=== PATIENT | male | born 1970 | race Caucasian/White ===

== ENCOUNTER 2021-10-09 07:49 | Outpatient (CLI) | payer OTHER | END 2021-10-09 07:50 | disposition left against medical advice (07) | LOC: EMS 07:49 | DX: M25.531 Pain in right wrist (principal); V43.52XA Car driver injured in collision with other type car in traffic accident, initial encounter; Y92.413 State road as the place of occurrence of the external cause ==

== ENCOUNTER 2021-10-09 09:10 | Emergency (ER) | payer OTHER ==
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
[2021-10-09 10:24] VITALS: BP 156/96
== END 2021-10-09 10:25 | disposition home or self-care (01) ==
LOC: ED 09:10
DX: S62.101A Fracture of unspecified carpal bone, right wrist, initial encounter for closed fracture (principal); V43.02XA Car driver injured in collision with other type car in nontraffic accident, initial encounter
CPT/HCPCS: 99283

== ENCOUNTER 2021-10-14 09:15 | Outpatient (CLI) | payer OTHER ==
--- NOTE | 2021-10-14 10:46 | XRAY Report ---
PROCEDURE: Wrist 3 View RT INDICATIONS: Wrist fracture TECHNIQUE: 3 views of the wrist were acquired. COMPARISON: 10/09/2021 FINDINGS: Fractures of the left distal radius and the left ulnar styloid are redemonstrated without significant change in appearance or alignment. Circumferential swelling about the wrist has decreased slightly. IMPRESSION: Mild decrease in circumferential soft tissue swelling about the wrist. Otherwise no sign ificant change. Reviewed by: Toño Phan MD on 10/14/2021 10:45 AM PDT Approved by: Toño Phan MD on 10/14/2021 10:45 AM PDT Station ID: [id number]
== END 2021-10-14 23:59 | disposition home or self-care (01) ==
LOC: DI.WOS 09:15
PROVIDERS: ATTEND Orthopaedic Surgery
DX: M25.531 Pain in right wrist (principal); R60.0 Localized edema

== ENCOUNTER 2021-10-18 11:18 | Day surgery (SDC) | payer OTHER ==
[2021-10-18] MEDS ORDERED: CEFAZOLIN SODIUM IN 0.9 % NACL 2 GM/50 ML BAG IV ONE (11:33)
[2021-10-18] MEDS ORDERED: CELECOXIB 100 MG CAPSULE PO ONE (11:34)
[2021-10-18] MEDS ORDERED: ACETAMINOPHEN 500 MG TABLET PO ONE (11:48)
[2021-10-18] MEDS ORDERED: LACTATED RINGERS 1,000 ML IV ONE ×2 (12:05→13:20)
[2021-10-18] MEDS ORDERED: BUPIVACAINE 0.25% PF 10 ML VIAL ONE (12:08)
--- NOTE | 2021-10-18 12:29 | ANESTHESIA ---
Pre-Anesthesia VS, & Labs - Diagnosis right distal radial fracture - Procedure ORIF right distal radial fracture Vital Signs: Temp Pulse Resp BP Pulse Ox 37.1 C 71 16 133/83 H 100 10/18/21 11:41 10/18/21 11:41 10/18/21 11:41 10/18/21 11:41 10/18/21 11:41 Height: 5 ft 7 in Weight (kg): 89.5 kg Body Mass Index: 30.9 BMI Classification: Obese - NPO >8 hours - Lab Results Current Lab Results: Laboratory Tests 10/18/21 12:05: POC Whole Bld Glucose 84 Home Medications and Allergies zyrtec OTC, tylenol and advil Allergies/Adverse Reactions: Allergies Allergy/AdvReac Type Severity Reaction Status Date / Time No Known Drug Allergies Allergy Verified 10/09/21 09:19 Anes History & Medical History - Anesthetic History Anesthesia Complications: reports: No previous complications - Medical History Cardiovascular: reports: Hypertension Pulmonary: reports: None Gastrointestinal: reports: None Urinary: reports: None Neuro: reports: None Musculoskeletal: reports: None Endocrine/Autoimmune: reports: None Blood Disorders: reports: None Skin: reports: None Smoking Status: Never smoker Psychosocial: reports: Alcohol (2 times per month) History of Cancer?: No - Surgical History Other Past Surgical History: oral surgery as a child Exam General: Alert, Oriented x3, Cooperative, No acute distress Dental: WNL Mouth Openin Fingerbreadth Neck Mobility: Normal Mallampati classification: II Thyromental Distance: 4-6 cm Respiratory: Lungs clear, Normal breath sounds, No respiratory distress, No accessory muscle use Cardiovascular: Regular rate, Normal S1, Normal S2, No murmurs Mental/Cognitive Status: Alert/Oriented X3, Normal for patient Plan Anesthesia Type: General Consent for Procedure(s) Verified and Reviewed: Yes Code Status: Attempt Resuscitation ASA classification: 1-Healthy patient Is this case an emergency?: No
[2021-10-18] MEDS ORDERED: LIDOCAINE-MPF 2% 5 ML VIAL ONE (12:41)
[2021-10-18] MEDS ORDERED: PROPOFOL 200 MG/20 ML VIAL IVP ONE (12:41)
[2021-10-18] MEDS ORDERED: MIDAZOLAM 2 MG/2 ML VIAL ONE (12:42)
[2021-10-18] MEDS ORDERED: fentaNYL 100 MCG/2 ML VIAL ONE (12:42)
[2021-10-18] MEDS ORDERED: DEXAMETHASONE 4 MG/ML VIAL ONE (13:03)
[2021-10-18] MEDS ORDERED: HYDROmorphone 1 MG/ML CARPUJECT ONE (13:03)
[2021-10-18] MEDS ORDERED: ONDANSETRON 4 MG/2 ML VIAL ONE (13:03)
[2021-10-18] MEDS ORDERED: BUPIVACAINE 0.25% PF 10 ML VIAL SUBQ ONE ×2 (13:04)
[2021-10-18] MEDS ORDERED: NALOXONE 0.4 MG/ML VIAL IVP PRN (13:25)
[2021-10-18] MEDS ORDERED: MORPHINE 2 MG/ML CARPUJECT IVP PRN (13:25)
[2021-10-18] MEDS ORDERED: ONDANSETRON 4 MG/2 ML VIAL IVP PRN (13:25)
[2021-10-18] MEDS ORDERED: ATROPINE ABBOJECT 1 MG/10 ML SYRINGE IVP PRN (13:25)
[2021-10-18] MEDS ORDERED: fentaNYL 100 MCG/2 ML VIAL IVP PRN (13:25)
[2021-10-18] MEDS ORDERED: HYDROmorphone 0.5 MG/0.5 ML SYRINGE IVP PRN (13:25)
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
[2021-10-18] MEDS ORDERED: KETOROLAC 15 MG/ML VIAL IVP STA (13:31)
[2021-10-18] MEDS ORDERED: HYDROcod/ACETAM 5/325 MG TABLET PO PRN (13:31)
[2021-10-18] MEDS ORDERED: LACTATED RINGERS 1,000 ML IV SCH (14:00)
--- NOTE | 2021-10-18 14:23 | XRAY Report ---
PROCEDURE: OR C-Arm Procedure INDICATIONS: RIGHT WRIST FX PERC PINNING TECHNIQUE: 2 intraoperative fluoroscopic images of right wrist were obtained. COMPARISON: Right wrist radiograph dated 10/14/2021 and 10/09/2021 FINDINGS: Intraoperative fluoroscopic images shows internal fixation of previously noted distal radial fracture . Ulnar styloid fracture is also seen. Total fluoroscopy time is 10 seconds. IMPRESSION: Fluoroscopy guidance was provided intraoperatively for internal fixation of distal radial fracture. Reviewed by: Miguel Muse MD on 10/18/2021 2:21 PM PDT Approved by: Mgiuel Muse MD on 10/18/2021 2:21 PM PDT Station ID: [id number]
[2021-10-18 14:50] VITALS: BP 125/84
--- NOTE | 2021-10-18 14:59 | ANESTHESIA POST OP EVALUATION ---
Anesthesia Post Eval - Post Anesthesia Eval Vitals: Last Vital Signs Temp 36.4 C L 10/18/21 14:35 Pulse 70 10/18/21 14:35 Resp 16 10/18/21 14:35 BP 125/84 H 10/18/21 14:35 Pulse Ox 99 10/18/21 14:35 CV Function Including HR & BP: Stable Pain Control: Satisfactory Nausea & Vomiting: Negative Mental Status: Baseline Respiratory Status: Airway Patent Hydration Status: Satisfactory Anesthesia Complications: None
== END 2021-10-18 11:19 | disposition home or self-care (01) ==
LOC: SDS 11:18
PROVIDERS: ATTEND Orthopaedic Surgery
DX: S52.571A Other intraarticular fracture of lower end of right radius, initial encounter for closed fracture (principal); E66.9 Obesity, unspecified; Z68.30 Body mass index [BMI] 30.0-30.9, adult
CPT/HCPCS: 25606; A9270; C1713; J0690; J1170; J7120